=== PATIENT | female | born 1995 | race Caucasian/White ===

== ENCOUNTER 2020-06-13 12:45 | Emergency (ER) | payer BC, SELFPAY ==
--- NOTE | 2020-06-13 13:04 | ED.GENADULT ---
HPI - General Adult General Chief complaint: Eye Problems Stated complaint: Swollen Eye/Migraine Source: patient Mode of arrival: ambulatory Limitations: no limitations History of Present Illness HPI narrative: Pleasant 25 y/o female. PMH includes: None pertinent reported. Presents to ED today with acute complaints of RT eye increased lacrimation, pruritus, and irritation for the past 72 hours respectively. Pt also notes to have been experiencing increased nasal congestion and non-productive cough. She arrives to clinic with temporal temp of 100.2. Patient states she has 'felt warm' but has not actually taken her own temperature at home since symptoms began. No confirmed Covid 19 contacts. She describes CHAIDEZ, similar to her common Migraines historically, and not the worst CHAIDEZ she has ever experienced. No visual changes, pain, or loss. No focal weakness, seizure activity, LOC, or nuchal rigidity. No sore throat, otalgia. No chest pain, dyspnea. She is without additional acute c/o upon PE. Related Data Home Medications Medication Instructions Recorded Confirmed Wellbutrin SR 06/13/20 06/13/20 Allergies Allergy/AdvReac Type Severity Reaction Status Date / Time No Known Allergies Allergy Verified 06/13/20 13:13 Review of Systems Review of Systems: Narrative: CONSTITUTIONAL: Denies fever, chills, sweats. EYES: Denies visual changes. Positive RT eye irritation, pruritus. No pain, discharge. ENT: Positive nasal congestion. No sore throat, otalgia. CARDIOVASCULAR: Denies chest pain, palpitations, edema. RESPIRATORY: Denies dyspnea, wheezing, cough GASTROINTESTINAL: Denies abdominal pain, nausea, vomiting, diarrhea. GENITOURINARY: Denies dysuria, hematuria, abnormal discharge SKIN: Denies rash or itching. MUSCULOSKELETAL: Denies acute back pain, joint pain, or myalgia. NEUROLOGIC: CHAIDEZ. Denies numbness, or focal weakness. No gait instability. PSYCHIATRIC: Denies anxiety or depression. All systems reviewed & are unremarkable except as noted in HPI and below (HPI ) PMFSH Comments At time of signature, I agree with nursing past medical, surgical, social and family history. There is no relevant family history pertinent to the presenting complaint. Exam Narrative: Exam Narrative: GENERAL: This is a well-nourished, well-developed patient, in no apparent distress. HEAD: normocephalic, atraumatic. EYES: PERRL. RT conjunctival erythema, mild crustation noted to inner duct and lower eyelashes RT. No globe swelling. No eyelid foreign body, gross swelling, or deformity. LT eye normal, unaffected. EOM are preserved. Vision is grossly intact. EARS: External ears normal, auditory canals clear and without drainage, TMs normal without perforation. Hearing grossly intact. NOSE: External nose normal with no obvious nasal discharge, nares without redness. Positive rhinorrhea. THROAT: Mucous membranes moist, posterior pharynx clear. NECK: Neck supple, non-tender without lymphadenopathy, masses or thyromegaly. CARDIOVASCULAR: Regular rate and rhythm without murmurs, gallops, or rubs. RESPIRATORY: Clear to auscultation. Breath sounds equal bilaterally. No wheezes, rales, or rhonchi. GASTROINTESTINAL: Abdomen soft, non-tender, nondistended. Bowel sounds are active. No hepato-splenomegaly, or palpable masses. No guarding. SKIN: warm, intact with no suspicious lesions or rash, good texture and turgor. NEURO: awake, alert, and oriented to person, place and time. There were no obvious focal neurologic abnormalities. Steady gait EXTREMITIES: Normal range of motion. No edema. BACK: Nontender without deformity or crepitance. No midline spinal tenderness appreciated. Course Course Emergency Course: -25 y/o female. -PMH: Migraines. -CC RT eye irritation, lacrimation, and pruritus. Also CHAIDEZ, similar to normal Migraine. No focal deficits. -Noted to be mildly febrile on exam. -Physical exam consistent with suspected Conjunctivitis RT eye. However, will tx with
[2020-06-13 13:05] VITALS: BP 124/80; PULSE 110; RESP 18; TEMP 37.9; O2SAT 98
[2020-06-13 13:18] VITALS: BP 124/80; PULSE 110; RESP 18; TEMP 37.9; O2SAT 98
== END 2020-06-13 13:52 | disposition home or self-care (01) ==
PROVIDERS: Emergency Provider Nurse Practitioner Adult Health; PCP Physician Assistant
DX: H10.9 Unspecified conjunctivitis (principal); B34.9 Viral infection, unspecified; R51.9 Headache, unspecified; Z20.822 Contact with and (suspected) exposure to COVID-19
CPT/HCPCS: 87426; 99213; C9803; G0463